=== PATIENT | female | born 1985 | race African-American/Black ===

== ENCOUNTER 2023-03-09 15:52 | Emergency (ER) | payer BC, OTHER ==
[2023-03-09 16:07] VITALS: RESP 18; TEMP 98; BMI 27.9
[2023-03-09 18:59] VITALS: BP 119/76; PULSE 66
== END 2023-03-09 18:27 | disposition home or self-care (01) ==
LOC: JER 15:52
DX: R00.2 Palpitations (principal); R05.9 Cough, unspecified; R09.81 Nasal congestion; R42 Dizziness and giddiness; U07.1 COVID-19
CPT/HCPCS: 0241U-QW; 93005; 93010; 99284-25